=== PATIENT | male | born 1945 | race African-American/Black ===

== ENCOUNTER 2018-10-28 10:44 | Emergency (ER) | payer MEDICARE, OTHER ==
[~2018-10-28] VITALS: Ht 188 cm; Wt 81.6 kg
--- NOTE | 2018-10-28 10:48 | Emergency Room Report ---
History of Present Illness General Chief Complaint: Behavioral Complaint Source: Medical Record Present Illness HPI 72-year-old male history of psychiatric disorder presents with agitation, patient was screaming, yelling, he states he has been having bad visions, and good visions, he denies any aggravating or relieving factors, patient is a poor historian, he denies any other complaints no chest pain shortness of breath, no suicidal or homicidal ideations, patient presents via EMS Allergies: Coded Allergies: No Known Allergies (Unverified , 10/28/18) Patient History Limited by: medical condition - Patient psychiatric illness Past Medical History: see triage record Reviewed Nursing Documentation: PMH: Agreed; PSxH: Agreed Nursing Documentation-PMH Past Medical History: No History, Except For History Of Psychiatric Problem: Yes Review of Systems Respiratory: Denies: shortness of breath Cardiovascular: Denies: chest pain Gastrointestinal: Denies: abdominal pain Psychiatric: Denies: SI, HI All Other Systems: limited - By his psychiatric illness Physical Exam Vital Signs Date Time Temp Pulse Resp B/P (MAP) Pulse Ox O2 Delivery O2 Flow Rate FiO2 10/28/18 10:41 98.8 72 18 127/64 (85) 100 Room Air Sp02 EP Interpretation: reviewed, normal General Appearance: no apparent distress, alert Head: normocephalic, atraumatic Eyes: bilateral eye PERRL, bilateral eye EOMI ENT: uvula midline, moist mucus membranes Neck: supple, thyroid normal, supple/symm/no masses Respiratory: lungs clear, no respiratory distress, no retraction, no accessory muscle use Cardiovascular #1: normal peripheral pulses, regular rate, rhythm, no edema, no gallop, no murmur Gastrointestinal: non tender, soft, no guarding, no rebound Musculoskeletal: normal inspection Neurologic: alert, oriented x3 Psychiatric: no suicidal/homicidal ideation, depressed affect, other - Patient with delusions Skin: no rash, warm/dry Medical Decision Making Diagnostic Impression: Primary Impression: Behavioral disorder Additional Impression: Altered mental status, unspecified ER Course 72-year-old male history of psychiatric disorder, he will not state what kind a history he has, he is a , he has no acute complaints however he endorses having bad in good visions that seem to disturb him, patient is medically cleared for transfer to a psychiatric facility voluntarily. He states he wants to go to the NH to be seen by psychiatry Patient when asked what psychiatric meds he takes, he cannot specify, unsure if patient is taking his psychiatric meds, unclear cause of his acute psychosis, patient states he does take some medication. Patient starts yelling out random noises, unsure if this is his baseline versus new acute psychosis, patient seems to be going in and out of lucidity. Low suspicion for infection however patient may benefit from admission for observation and medical management as well as psychiatric medication. Patient reevaluation 11:47AM patient states he wants to go to the NH and doesn' t want to be admitted to the hospital. Patient is stable at this time and has capacity at this time. Will not force patient to be admitted to [place]. He is currently lucid at this time. Spoke with Maik Saucedo who has power of county attorney at 1201pm, states she wants patient transferred to the NH for evaluation. Patient is medically stable and clear at this time. Spoke with Dr. Chucho Chen, who will speak with his attending phone call at 12 :22pm Dr. Chen accepted patient at 1:34pm Patient to be transferred to NH Laboratory Tests Test 10/28/18 10:48 10/28/18 11:01 Urine Color Pale yellow Urine Appearance Clear Urine pH 7 (4.5-8.0) Urine Specific [place] 1.005 (1.005-1.035) Urine Protein Negative (NEGATIVE) Urine Glucose (UA) Negative (NEGATIVE) Urine Ketones Negative (NEGATIVE) Urine Blood Negative (NEGATIVE) Urine Nitrite Negative (NEGATIVE) Urine Bilirubin Negative (NEGATIVE) Urine Urobilinogen Normal MG/DL (0.0-1.0) Urine Leukocyte Esterase Negative (NEGATIVE) Urine Opiates Screen Negative (NEGATIVE) Urine Barbiturates Screen Negative (NEGATIVE) Phencyclidine (PCP) Screen Negative (NEGATIVE) Urine Amphetamines Screen Negative (NEGATIVE) Urine Benzodiazepines Screen Negative (NEGATIVE) Urine Cocaine Screen Negative (NEGATIVE) Urine Marijuana (THC) Screen Negative (NEGATIVE) White Blood Count 9.8 K/UL (4.8-10.8) Red Blood Count 5.02 M/UL (4.70-6.10) Hemoglobin 12.7 G/DL (14.2-18.0) L Hematocrit 41.0 % (42.0-52.0) L Mean Corpuscular Volume 82 FL (80-99) Mean Corpuscular Hemoglobin 25.3 PG (27.0-31.0) L Mean Corpuscular Hemoglobin Concent 30.9 G/DL (32.0-36.0) L Red Cell Distribution Width 14.3 % (11.6-14.8) Platelet Count 203 K/UL (150-450) Mean Platelet Volume 6.8 FL (6.5-10.1) Neutrophils (%) (Auto) 58.5 % (45.0-75.0) Lymphocytes (%) (Auto) 31.9 % (20.0-45.0) Monocytes (%) (Auto) 8.0 % (1.0-10.0) Eosinophils (%) (Auto) 0.1 % (0.0-3.0) Basophils (%) (Auto) 1.5 % (0.0-2.0) Sodium Level 134 MMOL/L (136-145) L Potassium Level 4.0 MMOL/L (3.5-5.1) Chloride Level 100 MMOL/L (98-107) Carbon Dioxide Level 24 MMOL/L (21-32) Anion Gap 10 mmol/L (5-15) Blood Urea Nitrogen 8 mg/dL (7-18) Creatinine 0.9 MG/DL (0.55-1.30) Estimate Glomerular Filtration Rate mL/min (>60) Glucose Level 95 MG/DL (74-106) Calcium Level 9.2 MG/DL (8.5-10.1) Total Bilirubin 0.4 MG/DL (0.2-1.0) Aspartate Amino Transferase (AST) 50 U/L (15-37) H Alanine Aminotransferase (ALT) 37 U/L (12-78) Alkaline Phosphatase 109 U/L (46-116) Total Protein 7.9 G/DL (6.4-8.2) Albumin 3.4 G/DL (3.4-5.0) Globulin 4.5 g/dL Albumin/Globulin Ratio 0.8 (1.0-2.7) L Salicylates Level 2.0 ug/mL (2.8-20) L Acetaminophen Level < 2 MCG/ML (10-30) L Serum Alcohol < 3 mg/dL EKG Diagnostic Results EKG Time: 11:01 EP Interpretation: NSR, rate 90, QTc 352, no acute ST elevations, normal axis Rate: normal Rhythm: NSR ST Segments: no acute changes ASA given to the pt in ED: No Last Vital Signs Date Time Temp Pulse Resp B/P (MAP) Pulse Ox O2 Delivery O2 Flow Rate FiO2 10/28/18 10:41 98.8 72 18 127/64 (85) 100 Room Air Disposition: DISC/XFER TO A [facility] Condition: Stable Yifan Davidson M.D. Oct 28, 2018 10:48
[2018-10-28 10:59] VITALS: BP 151/90
[2018-10-28 11:03] LABS: APPEARANCE,URINE CLEAR; BILIRUBIN, URINE NEGATIVE (NEGATIVE); COLOR,URINE PALE YELLOW; GLUCOSE, URINE (UA) NEGATIVE (NEGATIVE); KETONES,URINE NEGATIVE (NEGATIVE); LEUKOCYTE ESTERASE ,URINE NEGATIVE (NEGATIVE); NITRITE,URINE NEGATIVE (NEGATIVE); PH,URINE 7 (4.5-8.0); PROTEIN,URINE NEGATIVE (NEGATIVE); UROBILINOGEN,URINE NORMAL MG/DL (0.0-1.0)
--- NOTE | 2018-10-28 11:06 | NUR ---
ED Nurse Note: pt was brought in the ed by ambulance from home c/o psyche eval. per ems. pt brother called 911 because the patient is screaming with no reason. pt stated he has been hearing voices recently. pt is poor historian when it comes to medication and history. ermd on bedside. denies hi and si, denies any pain. pt noted to have hand tremors. pt vss. iv started and pt able to give urine sample and was sent to lab. ivf started. will continue to monitor.
[2018-10-28 11:32] LABS: BASOPHILS % (AUTO) 1.5 % (0.0-2.0); EOSINOPHILS % (AUTO) 0.1 % (0.0-3.0); HEMOGLOBIN 12.7 G/DL (14.2-18.0); LYMPHOCYTES % (AUTO) 31.9 % (20.0-45.0); MEAN CORPUSCULAR VOLUME 82 FL (80-99); NEUTROPHILS % (AUTO) 58.5 % (45.0-75.0); PLATELET COUNT 203 K/UL (150-450); RED BLOOD COUNT 5.02 M/UL (4.70-6.10); RED CELL DISTRIBUTION WIDTH 14.3 % (11.6-14.8); WHITE BLOOD COUNT 9.8 K/UL (4.8-10.8)
[2018-10-28 11:39] LABS: ANION GAP 10 mmol/L (5-15); BLOOD UREA NITROGEN 8 mg/dL (7-18); CALCIUM 9.2 MG/DL (8.5-10.1); CARBON DIOXIDE 24 MMOL/L (21-32); CHLORIDE 100 MMOL/L (98-107); CREATININE 0.9 MG/DL (0.55-1.30); SODIUM 134 MMOL/L (136-145)
[2018-10-28 11:44] LABS: ALANINE AMINOTRANSFERASE 37 U/L (12-78); ALBUMIN 3.4 G/DL (3.4-5.0); ALBUMIN/GLOBULIN RATIO 0.8 (1.0-2.7); ALKALINE PHOSPHATASE 109 U/L (46-116); ASPARTATE AMINO TRANSFERASE 50 U/L (15-37); BILIRUBIN,TOTAL 0.4 MG/DL (0.2-1.0)
--- NOTE | 2018-10-28 11:59 | NUR ---
ED Nurse Note: ermd on bedside talking to pt regarding the plan for admission. will continue to monitor.
[2018-10-28 12:12] VITALS: BP 136/87
[2018-10-28 14:00] VITALS: BP 135/88
--- NOTE | 2018-10-28 14:11 | NUR ---
ED Nurse Note: pt in room , laying down on bed, no complaints as of the moment. pt aware of the tras[place]fer to [facility], awaiting for [facility]qsnport. pt vss. will continue to monitor.
[2018-10-28 15:04] VITALS: BP 135/88
--- NOTE | 2018-10-28 15:04 | NUR ---
ED Nurse Note: pt was transfered to [facility] by ambulance assited by 2 emt with stable vs and with all belongings.
--- NOTE | 2018-10-29 21:05 | Cardiology Report ---
APPROVED REPORT EKG Measurement Heart [id number] Normal sinus rhythm Minimal voltage criteria for LVH, may be normal variant Nonspecific ST and T wave abnormality Abnormal ECG
== END 2018-10-28 15:04 ==
LOC: EDBD 10:44 → EMR 11:15 → CANBEDREQ 15:26
DX: F91.9 Conduct disorder, unspecified (principal); R41.82 Altered mental status, unspecified
CPT/HCPCS: 36415; 80053; 80307; 81003; 85025; 93005; 96360; 99284; G0480; 80329